=== PATIENT | male | born 1955 | race Caucasian/White ===

== ENCOUNTER 2018-10-13 23:36 | Observation (INO) | payer OTHER ==
[2018-10-13] MEDS ORDERED: NS 1,000 ML IV ONE (23:48)
--- NOTE | 2018-10-13 23:48 | EDPHY ---
H & P Stated Complaint: c/o n/v/abd pain, worsening hernia pain Time Seen by Provider: 10/13/18 23:48 HPI/ROS: HPI CHIEF COMPLAINT: Abdominal pain, vomiting HISTORY OF PRESENT ILLNESS: Very pleasant 63-year-old male, presents emergency room with abdominal pain and vomiting. Patient states he ate [employer] around 6:00 p.m.. Shortly after started feeling nauseous and having epigastric abdominal pain. Did not radiate anywhere. He then had vomiting 2 episodes. His pain rather persisted in the epigastric region does not radiate anywhere denies chest pain or shortness of breath denies the pain going into his chest. States focally his epigastric region. No fever. Did have chills. Associated nausea and then another episode of vomiting in the emergency room waiting room. Complains of pain epigastric. Currently 05/05. Of note the patient states he has had some abdominal discomfort over the past few weeks and saw his primary care doctor for this was recommended to have a CT scan of his abdomen pelvis to evaluate his abdominal hernia. Patient has a known ventral abdominal hernia. However he states this pain is different and acute in onset this evening. Past Medical History: Denies significant medical history except for gout Past Surgical History: Multiple orthopedic surgeries. Social History: Alcohol this evening typically 2-3 beers per evening. Had 3 beers this evening. Denies drugs or tobacco. Family History: Cardiovascular disease in his father with bypass surgery. ROS REVIEW OF SYSTEMS: 10 Systems were reviewed and negative with the exception of the elements mentioned in the history of present illness. Exam Constitutional triage nursing summary reviewed, vital signs reviewed, awake/ alert. Eyes normal conjunctivae and sclera, EOMI, PERRLA. HENT normal inspection, atraumatic, moist mucus membranes, no epistaxis, neck supple/ no meningismus, no raccoon eyes. Respiratory clear to auscultation bilaterally, normal breath sounds, no respiratory distress, no wheezing. Cardiovascular rate normal, regular rhythm, no murmur, no edema, distal pulses normal. Gastrointestinal tender palpation epigastric region reproducible on exam, no peritoneal signs, large ventral hernia present, no rebound, no guarding, normal bowel sounds, no distension, no pulsatile mass. Genitourinary no CVA tenderness. Musculoskeletal no midline vertebral tenderness, full range of motion, no calf swelling, no tenderness of extremities, no meningismus, good pulses, neurovascularly intact. Skin pink, warm, & dry, no rash, skin atraumatic. Neurologic awake, alert and oriented x 3, AAOx3, moves all 4 extremities equally, motor intact, sensory intact, CN II-XII intact, normal cerebellar, normal vision, normal speech. Psychiatric normal mood/affect. Heme/Lymph/Immune no lymphadenopathy. Differential diagnosis includes but is not limited to and in no particular order : Bowel obstruction, appendicitis, gallbladder disease, diverticulitis, colitis , enteritis, perforated viscus, gastritis, GERD, esophagitis, urinary tract infection, pyelonephritis, kidney stones Medical Decision Making: Plan for this patient IV establishment IV fluid bolus , IV Zofran nausea, IV Dilaudid for pain control, basic blood work, CBC, chemistry, lipase, LFTs, lactic, UA. Gentle IV fluids and re-evaluate. Re-evaluation: EKG interpretation by me on record in [facility] system. Impression time of EKG 0019: Sinus rhythm rate of 80, nonspecific T-wave abnormalities V4 V5 V6. No ST elevation no ST depression. CT scan abdomen pelvis with IV contrast called to me by Dr. Guzman shows no acute inflammatory process visualized. 0350AM: Patient re-evaluated this time. He still has some epigastric abdominal pain. It is reproducible on exam. When I press in his epigastric it bothers him. He states it is deep inside. His CT scan was reviewed shows no acute inflammatory process. Plan for GI cocktail to see if this improves his discomfort. Patient is requesting a 2nd L fluid which are provide for him. Additionally due to his age, epigastric pain will obtain a 2nd EKG and 2nd troponin however I do not believe this is cardiovascular in etiology given his reproducible on exam. Or tender on exam. Plan for GI cocktail, 2nd L fluid, repeat EKG repeat troponin. EKG interpretation by me on record in [email or web address] system. Impression time of repeat EKG 3:57 a.m., sinus rhythm rate of 84 nonspecific T-wave abnormality V4 V5 V6. As well as lead 1 and aVL. Unchanged from previous EKG. No ST elevation. 2nd troponin 0.00. 0443: Long discussion with the patient about his workup results. He continues to have pain despite a GI cocktail. Denies any chest pain but the pain is located in his epigastric region. On review of his EKGs he has abnormal EKGs with T-wave inversions in a pattern of lead 1 aVL V4 V5 V6 seen on both of his EKGs today. I do not have an old EKG to compare this to. A given his epigastric discomfort, age, cardiovascular risk factors, abnormal EKGs I do recommend we observe him overnight with serial enzymes echocardiogram possible stress. Spoke with Hospalist agree to admit. Dr. Trevizo. Spoke with Patient Agrees for admission. Source: Patient - Medical/Surgical History Hx Asthma: No Hx Chronic Respiratory Disease: No Hx Diabetes: No Hx Cardiac Disease: No Hx Renal Disease: No Hx Cirrhosis: No Hx Alcoholism: No Hx HIV/AIDS: No Hx Splenectomy or Spleen Trauma: No Other PMH: gout, sleep apnea, hernia repair - Social History Smoking Status: Never smoked Constitutional: Initial Vital Signs Temperature (C) 36.3 C 10/13/18 23:41 Heart Rate 101 H 10/13/18 23:41 Respiratory Rate 18 10/13/18 23:41 Blood Pressure 131/79 H 10/13/18 23:41 O2 Sat (%) 93 10/13/18 23:41 O2 Delivery Mode Room Air Allergies/Adverse Reactions: Penicillins Allergy (Verified 10/14/18 08:13) Unknown Home Medications: Medication Instructions Recorded Indomethacin [Indocin 25 mg (*)] 25 mg PO DAILY PRN 10/13/18 Zolpidem Tartrate [Ambien 5MG (*)] 5 - 10 mg PO HS 10/13/18 Aspirin [Aspirin 325 mg (*)] 325 mg PO DAILY PRN 10/14/18 Cholestyramine (with Sugar) 4 gm PO DAILY PRN 10/14/18 [Cholestyramine Packet] Pantoprazole Sodium [Protonix 40mg 40 mg PO BID #60 tab 10/14/18 (*)] Medical Decision Making - Data Points Laboratory Results: Laboratory Results 10/14/18 00:11 10/14/18 00:11 Medications Given: Discontinued Medications Al Hydroxide/Mg Hydroxide (Maalox Susp) 30 ml PO ONCE ONE Stop: 10/14/18 03:49 Last Admin: 10/14/18 03:55 Dose: 30 ml Famotidine (Pepcid) 20 mg IVP EDNOW ONE Stop: 10/14/18 04:45 Last Admin: 10/14/18 04:58 Dose: 20 mg Hydromorphone HCl (Dilaudid) 0.5 mg IVP EDNOW ONE Stop: 10/14/18 00:05 Last Admin: 10/14/18 01:38 Dose: 0.5 mg Hyoscyamine Sulfate (Levsin, Hyomax-Sl) 0.25 mg PO ONCE ONE Stop: 10/14/18 03:49 Last Admin: 10/14/18 03:53 Dose: 0.25 mg Sodium Chloride (Ns) 1,000 mls @ 0 mls/hr IV EDNOW ONE; Wide Open PRN Reason: Protocol Stop: 10/13/18 23:49 Last Admin: 10/14/18 00:11 Dose: 1,000 mls Sodium Chloride (Ns) 1,000 mls @ 0 mls/hr IV ONCE ONE PRN Reason: Wide Open Stop: 10/14/18 03:50 Last Admin: 10/14/18 03:56 Dose: 1,000 mls Sodium Chloride (Ns) 1,000 mls @ 100 mls/hr IV CONT TORSTEN Stop: 04/12/19 05:14 Last Admin: 10/14/18 08:46 Dose: 1,000 mls Lidocaine (Lidocaine 2% Viscous) 15 ml PO ONCE ONE Stop: 10/14/18 03:49 Last Admin: 10/14/18 03:55 Dose: 15 ml Ondansetron HCl (Zofran) 4 mg IVP EDNOW ONE Stop: 10/14/18 00:05 Last Admin: 10/14/18 00:15 Dose: 4 mg Pantoprazole Sodium (Protonix) 40 mg IVP BID TORSTEN Stop: 04/12/19 08:59 Last Admin: 10/14/18 08:46 Dose: 40 mg Point of Care Test Results: Chemistry 10/14/18 10/14/18 04:09 00:15 POC Troponin I 0.00 ng/mL ng/mL 0.00 ng/mL ng/mL (0.00-0.08) (0.00-0.08) Departure - Departure Disposition: [facility] Inpatient Acute Clinical Impression: Abnormal EKG Abdominal pain Qualifiers: Abdominal location: epigastric Qualified Code(s): R10.13 - Epigastric pain Condition: Good
[2018-10-13] MEDS ORDERED: IOPAMIDOL (ISOVUE-300) 100 ML BTL ONE (23:53)
[2018-10-14] MEDS ORDERED: HYDROmorphONE/DILAUDID 2 MG/ML INJ IVP ONE (00:04)
[2018-10-14] MEDS ORDERED: ONDANSETRON 4 MG/2 ML VIAL IVP ONE (00:04)
[2018-10-14 00:28] LABS: PLATELET COUNT 314 10^3/uL (150-400)
[2018-10-14 00:47] LABS: INR 0.94 (0.83-1.16); PROTIME(PATIENT) 12.8 SEC (12.0-15.0)
[2018-10-14] MEDS ORDERED: HYDROmorphONE/DILAUDID 1 MG/ML INJ ONE (01:37)
[2018-10-14] MEDS ORDERED: MAG HYDROX/AL HYDROX/SIMETH 30 ML UDCUP PO ONE (03:48)
[2018-10-14] MEDS ORDERED: HYOSCYAMINE SULFATE 0.125 MG TAB PO ONE (03:48)
[2018-10-14] MEDS ORDERED: LIDOCAINE 2% VISCOUS 15 ML UDCUP PO ONE (03:48)
[2018-10-14] MEDS ORDERED: NS 1,000 ML IV ONE (03:49)
[2018-10-14] MEDS ORDERED: FAMOTIDINE 20 MG/2 ML SDV IVP ONE (04:44)
[2018-10-14] MEDS ORDERED: ONDANSETRON DISINTEGRATING 4 MG TAB PO PRN (05:07)
[2018-10-14] MEDS ORDERED: PROMETHAZINE HCL 25 MG/ML INJ IVP PRN (05:07)
[2018-10-14] MEDS ORDERED: HYDROmorphONE/DILAUDID 1 MG/ML INJ IVP PRN (05:07)
[2018-10-14] MEDS ORDERED: ACETAMINOPHEN 325 MG TAB PO PRN (05:07)
[2018-10-14] MEDS ORDERED: ONDANSETRON 4 MG/2 ML VIAL IVP PRN (05:07)
[2018-10-14] MEDS ORDERED: NS 1,000 ML IV SCH (05:15)
--- NOTE | 2018-10-14 06:11 | PDGENHP ---
History and Physical - Chief Complaint Abdominal pain - History of Present Illness 63 yo M w/ minimal PMhx presents with abdominal pain. The patient experienced acute onset, severe epi-gastric pain after eating a large meal. He ate some chicken parmesan followed by hot chocolate with liquor and then developed severe epi-gastric pain. He then developed nausea and vomiting. At this point he decided to come to the ED. His pain has persisted for several hours despite numerous medications. He feels like a GI cocktail was moderately helpful and that Dilaudid actually worsened the pain leading to a spasm of pain. He denies chest pain or shortness of breath. He has no prior cardiac history. He drinks 3 beers daily and takes occasional NSAIDs. He does not smoke cigarettes. CT scan in the ED was mostly unremarkable, as was laboratory work-up. He is being admitted for observation and further work-up. Case discussed with Dr. Mc; records reviewed and summarized above. History Information - Allergies/Home Medication List Allergies/Adverse Reactions: Penicillins Allergy (Verified 10/13/18 23:47) Home Medications: Ambien 10/13/18 [Last Taken Unknown] Indomethacin 10/13/18 [Last Taken Unknown] I have personally reviewed and updated: family history, medical history - Past Medical History no pertinent PMH - Surgical History Reports: hernia repair (Multiple) - Family History Positive for: CAD - Social History Smoking Status: Never smoked Review of Systems Review of Systems: ROS: 10pt was reviewed & negative except for what was stated in HPI & below Physical Exam Physical Exam: Temp Pulse Resp BP Pulse Ox 36.5 C 72 16 118/72 96 10/14/18 05:18 10/14/18 04:59 10/14/18 04:59 10/14/18 04:59 10/14/18 04:59 Constitutional: appears nourished, uncomfortable Eyes: PERRL, EOMI Ears, Nose, Mouth, Throat: moist mucous membranes, no oral mucosal ulcers Cardiovascular: regular rate and rhythym, no murmur, rub, or gallop Respiratory: no respiratory distress, clear to auscultation Gastrointestinal: normoactive bowel sounds, tenderness (Epi-gastric), No guarding, No rebound, No distension Skin: warm, normal color Musculoskeletal: full muscle strength, no muscle tenderness Neurologic: AAOx3, CN II-XII Intact Psychiatric: interacting appropriately, not anxious Lab Data & Imaging Review 10/14/18 00:11 10/14/18 00:11 WBC 15.59 10^3/uL (3.80-9.50) H 10/14/18 00:11 RBC 5.90 10^6/uL (4.40-6.38) 10/14/18 00:11 Hgb 17.1 g/dL (13.7-17.5) 10/14/18 00:11 Hct 49.3 % (40.0-51.0) 10/14/18 00:11 MCV 83.6 fL (81.5-99.8) 10/14/18 00:11 MCH 29.0 pg (27.9-34.1) 10/14/18 00:11 MCHC 34.7 g/dL (32.4-36.7) 10/14/18 00:11 RDW 13.1 % (11.5-15.2) 10/14/18 00:11 Plt Count 314 10^3/uL (150-400) 10/14/18 00:11 MPV 9.7 fL (8.7-11.7) 10/14/18 00:11 Neut % (Auto) 84.4 % (39.3-74.2) H 10/14/18 00:11 Lymph % (Auto) 9.7 % (15.0-45.0) L 10/14/18 00:11 Lipscomb % (Auto) 4.9 % (4.5-13.0) 10/14/18 00:11 Eos % (Auto) 0.4 % (0.6-7.6) L 10/14/18 00:11 Baso % (Auto) 0.3 % (0.3-1.7) 10/14/18 00:11 Nucleat RBC Rel Count 0.0 % (0.0-0.2) 10/14/18 00:11 Absolute Neuts (auto) 13.14 10^3/uL (1.70-6.50) H 10/14/18 00:11 Absolute Lymphs (auto) 1.52 10^3/uL (1.00-3.00) 10/14/18 00:11 Absolute Monos (auto) 0.76 10^3/uL (0.30-0.80) 10/14/18 00:11 Absolute Eos (auto) 0.07 10^3/uL (0.03-0.40) 10/14/18 00:11 Absolute Basos (auto) 0.05 10^3/uL (0.02-0.10) 10/14/18 00:11 Absolute Nucleated RBC 0.00 10^3/uL (0-0.01) 10/14/18 00:11 Immature Gran % 0.3 % (0.0-1.1) 10/14/18 00:11 Immature Gran # 0.05 10^3/uL (0.00-0.10) 10/14/18 00:11 PT 12.8 SEC (12.0-15.0) 10/14/18 00:11 INR 0.94 (0.83-1.16) 10/14/18 00:11 APTT 23.7 SEC (23.0-38.0) 10/14/18 00:11 VBG Lactic Acid 1.4 mmol/L (0.7-2.1) 10/14/18 00:11 Sodium 140 mEq/L (135-145) 10/14/18 00:11 Potassium 3.5 mEq/L (3.3-5.0) 10/14/18 00:11 Chloride 104 mEq/L (97-110) 10/14/18 00:11 Carbon Dioxide 21 mEq/l (22-31) L 10/14/18 00:11 Anion Gap 15 mEq/L (6-14) H 10/14/18 00:11 BUN 15 mg/dL (7-23) 10/14/18 00:11 Creatinine 1.0 mg/dL (0.7-1.3) 10/14/18 00:11 Estimated GFR > 60 10/14/18 00:11 Glucose 121 mg/dL (70-100) H 10/14/18 00:11 Calcium 10.4 mg/dL (8.5-10.4) 10/14/18 00:11 Total Bilirubin 0.6 mg/dL (0.1-1.4) 10/14/18 00:11 Conjugated Bilirubin 0.2 mg/dL (0.0-0.5) 10/14/18 00:11 Unconjugated Bilirubin 0.4 mg/dL (0.0-1.1) 10/14/18 00:11 AST 23 IU/L (17-59) 10/14/18 00:11 ALT 32 IU/L (21-72) 10/14/18 00:11 Alkaline Phosphatase 50 IU/L (38-126) 10/14/18 00:11 POC Troponin I 0.00 ng/mL (0.00-0.08) 10/14/18 04:09 Total Protein 7.6 g/dL (6.3-8.2) 10/14/18 00:11 Albumin 4.6 g/dL (3.5-5.0) 10/14/18 00:11 Lipase 107 IU/L (23-300) 10/14/18 00:11 Urine Color YELLOW 10/14/18 02:50 Urine Appearance HAZY 10/14/18 02:50 Urine pH 6.0 (5.0-7.5) 10/14/18 02:50 Ur Specific [place] > 1.035 (1.002-1.030) H 10/14/18 02:50 Urine Protein NEGATIVE (NEGATIVE) 10/14/18 02:50 Urine Ketones TRACE (NEGATIVE) H 10/14/18 02:50 Urine Blood NEGATIVE (NEGATIVE) 10/14/18 02:50 Urine Nitrate NEGATIVE (NEGATIVE) 10/14/18 02:50 Urine Bilirubin NEGATIVE (NEGATIVE) 10/14/18 02:50 Urine Urobilinogen NEGATIVE EU (0.2-1.0) 10/14/18 02:50 Ur Leukocyte Esterase NEGATIVE (NEGATIVE) 10/14/18 02:50 Urine Glucose NEGATIVE (NEGATIVE) 10/14/18 02:50 Imaging Review: CT A/P Prelim: diarrhea without obstruction Visualized and Interpreted EKG results: Yes EKG Interpretation: Positive for: normal sinsus rhythm, T waves inversion ( Lateral leads) Assessment & Plan Assessment: 63 yo M presents with abdominal pain and vomiting. Plan: 1. Abdominal pain - Acute onset, severe epi-gastric pain associated with vomiting with onset after eating a rich meal. The pain improved moderately with a GI cocktail and was interestingly worsened by opiates, leading to a spasm. CT A/P in the ED (personally reviewed/interpreted) without clear etiology. Laboratory work-up, including LFTs and lipase, also unrevealing. Pain seems consistent with gastritis/PUD in setting of daily ETOH. Onset after rich meal and spasm after opiates also brings up possibility of biliary pathology. He denies diarrhea, BRBPR, or melena. - Admit for observation - RUQ U/S to evaluate gallbladder - PPI IV BID for now - Clear liquid diet, ADAT - mIVF, pain control and anti-emetics PRN - If pain worsens despite conservative measures, consider GI consult 2. Abnormal ECG - ECG (personally reviewed/interpreted) notable for TWI's in V3- V6. I doubt this is related to above symptoms, but there is no prior ECG in our system for comparison. Troponin negative x2 in ED. - Monitor on telemetry - Will check one additional troponin at 1000 - Request prior ECG from [facility] for comparison Diet - Clears, ADAT Code - Full Ppx - SCDs Dispo - Admit under observation status
[2018-10-14] MEDS ORDERED: CHOLESTYRAMINE/SUCROSE 4 GM PKT PO PRN (08:46)
[2018-10-14] MEDS ORDERED: ASPIRIN 325 MG TAB PO PRN (08:46)
[2018-10-14] MEDS ORDERED: PANTOPRAZOLE SODIUM 40 MG VIAL IVP SCH (09:00)
[2018-10-14 11:24] VITALS: BP 99/58
--- NOTE | 2018-10-14 12:32 | ASMTLACE ---
LACE Length of stay for Answers: Less than 1 day current admission Acuity / Level of Answers: No Care: Did the patient have an inpatient admission? # of Emergency department Answers: 1-2 visits in the last 6 months Score: 1 Date Signed: 10/14/2018 12:32 PM Electronically Signed By:Joanne Londono RN
--- NOTE | 2018-10-14 12:32 | ASMTCMCOM ---
CM Note CM Note Notes: Patient admitted with abdominal pain - currently undergoing work-up. Met with patient and as they had some questions regarding their insurance coverage and possible payment plan options. Referral sent to our financial counselors to follow-up. No other CM needs identified at this time. Anticipate patient will d/c home with support of when medically stable. D/W RN and . CM available for changes. Plan: Independent Date Signed: 10/14/2018 12:31 PM Electronically Signed By:Joanne Londono RN
--- NOTE | 2018-10-14 17:41 | PDDCSUM ---
Discharge Summary Discharge Summary: Date of Admission: 10/13/2018 Date of Discharge: 10/14/2018 Studies: 1. CT abd/pelvis with contrast 2. Abdominal US Discharge Diagnoses: 1. Acute epigastric pain, likely gastritis 2. Abnormal ECG 3. Leukocytosis 4. Ventral hernia, reducible Brief Hospital Course: 63yo M without significant PMH presented with acute onset epigastric pain that improved slightly with GI cocktail. CT of his abdomen and abdominal US were grossly unremarkable. LFTs and lipase were also normal. His symptoms were most consistent with acute gastritis which is likely related to his etoh use (about 3 beers/day). He was started on a PPI. He did not have any red flag symptoms that warranted urgent endoscopic evaluation. He has a ventral hernia (chronic); imaging did not show any obstructed or strangulated bowel. He did have some T wave flattening in leads V3-6 which were stable on 2 ECGs. We did not have prior for comparison. Serial troponins were negative. I do not think his current presentation was related to coronary ischemia but his ECG changes warrant further investigation in the outpatient setting. Medications: Please refer to EMR for complete list. Changes this admission include addition of pantoprazole 40mg PO BID. Follow Up Plan: 1. PCP visit in 4 weeks to assess response to PPI. 2. If not improving with PPI, refer to GI for EGD. 3. Consider general surgery referral for ventral hernia. 4. Consider cardiac stress test to evaluate T wave changes on ECG. Physical Exam: Vitals reviewed, stable. Alert and oriented, RRR without murmur, lungs clear, abdomen soft with reducible ventral hernia, epigastric tenderness, no rashes, no edema.
[2018-10-14] MEDS ORDERED: ZOLPIDEM TARTRATE 5 MG TAB PO SCH (21:00)
--- NOTE | 2018-10-16 07:06 | CPEKG ---
Test Reason : OPEN Blood Pressure : / mmHG Vent. Rate : 080 BPM Atrial Rate : 080 BPM P-R Int : 166 ms QRS Dur : 095 ms QT Int : 501 ms P-R-T Axes : 065 018 112 degrees QTc Int : 579 ms Sinus rhythm Nonspecific T abnormalities, lateral leads Prolonged QT interval Confirmed by Gabriel Petit ([id number]) on 10/16/2018 7:05:15 AM Referred By: Confirmed By:Gabriel Petit
--- NOTE | 2018-10-16 07:06 | CPEKG ---
Test Reason : OPEN Blood Pressure : / mmHG Vent. Rate : 084 BPM Atrial Rate : 083 BPM P-R Int : 165 ms QRS Dur : 088 ms QT Int : 478 ms P-R-T Axes : 046 010 134 degrees QTc Int : 566 ms Sinus rhythm Nonspecific T abnrm, anterolateral leads Prolonged QT interval Confirmed by Gabriel Petit ([id number]) on 10/16/2018 7:05:16 AM Referred By: Confirmed By:Gabriel Petit
== END 2018-10-14 13:53 | disposition home or self-care (01) ==
LOC: F2W 10-14 05:28
PROVIDERS: ADMIT Student in an Organized Health Care Education/Training Program; ATTEND Student in an Organized Health Care Education/Training Program
DX: R10.13 Epigastric pain (principal); R94.31 Abnormal electrocardiogram [ECG] [EKG]; D72.829 Elevated white blood cell count, unspecified; K43.9 Ventral hernia without obstruction or gangrene; E86.9 Volume depletion, unspecified
CPT/HCPCS: 74177; 76705; 93005; 96361; 96374; 96375; 99285; G0378; 84484-PO; J1170; J2405; Q9967

== ENCOUNTER 2018-12-31 13:13 | Outpatient (CLI) | payer OTHER ==
[2018-12-31] MEDS ORDERED: GADOBUTROL 10 ML VIAL IVP ONE (13:55)
[2018-12-31] MEDS ORDERED: methylPREDNISolone SOD SUCC 125 MG/2 ML VIAL ONE (15:12)
[2018-12-31 17:07] VITALS: BP 129/76
== END 2018-12-31 16:40 | disposition home or self-care (01) ==
LOC: FIMAGING 13:13
PROVIDERS: ATTEND Internal Medicine
DX: K57.10 Diverticulosis of small intestine without perforation or abscess without bleeding (principal)
CPT/HCPCS: A9585; J1200; J2930